=== PATIENT | female | born 2000 | race Caucasian/White ===

== ENCOUNTER 2021-05-20 08:17 | Inpatient (IN) | payer BC ==
[~2021-05-20] VITALS: Ht 167.6 cm; Wt 67.1 kg
[2021-05-20] MEDS ORDERED: ONDANSETRON 2MG/ML, 2ML IVPush ONE (08:30)
[2021-05-20] MEDS ORDERED: FAMOTIDINE 20 MG/2 ML IVPush ONE (08:30)
[2021-05-20] MEDS ORDERED: SODIUM CHLORIDE 0.9% 1,000ML IVBOLUS ONE (08:30)
[2021-05-20] MEDS ORDERED: SODIUM CHLORIDE FLUSH 10ML SYR IVF ONE (08:30)
--- NOTE | 2021-05-20 08:48 | NUR ---
FIRST CONTACT: VOMITING X2 WEEKS, ONLY RELIEVED BY HOT SHOWERS. SEEN LAST WEEK FOR SAME. HX:CYCLIC VOMITING. PT POSTIONED TO COMFORT AND ATTACHED TO MONITORS. VSS. OBANDO.
--- NOTE | 2021-05-20 08:48 | NUR ---
PT TO XRAY
[2021-05-20 08:54] LABS: BASOPHILS % (AUTO) 0 % (0-1); EOSINOPHILS % (AUTO) 1 % (1-7); LYMPHOCYTES % (AUTO) 17 % (22-44); MEAN CORPUSCULAR HEMOGLOBIN 29.7 pg (27.0-34.8); MEAN CORPUSCULAR HGB CONC 35.2 g/dL (32.4-35.8); MEAN PLATELET VOLUME 7.6 fL (7.4-10.4); MONOCYTES % (AUTO) 9 % (2-9); NEUTROPHILS % (AUTO) 73 % (42-75); PLATELET COUNT 418 x10^3/uL (130-400); RED BLOOD COUNT 5.31 x10^6/uL (3.82-5.3); RED CELL DISTRIBUTION WIDTH 12.5 % (9.6-15.2)
[2021-05-20] MEDS ORDERED: MAALOX/HYOSCYAMINE/LIDOCAINE 45 ML BTL ONE (09:00)
[2021-05-20] MEDS ORDERED: ONDANSETRON 2MG/ML, 2ML ONE (09:00)
[2021-05-20] MEDS: MAALOX/HYOSCYAMINE/LIDOCAINE 45 ML BTL PO ONE ×2 (09:03→10:16)
[2021-05-20 09:05] LABS: ANION GAP 9 mmol/L (5-15); CALCIUM 9.3 mg/dL (8.5-10.1); CHLORIDE 94 mmol/L (98-107)
[2021-05-20 09:06] LABS: ALANINE AMINOTRANSFERASE 32 U/L (12-78); ALBUMIN 4.3 g/dL (3.4-5.0)
[2021-05-20 09:11] LABS: ALKALINE PHOSPHATASE 121 U/L (45-117); BILIRUBIN,TOTAL 1.5 mg/dL (0.2-1.0); TOTAL PROTEIN 8.4 g/dL (6.4-8.2)
[2021-05-20] MEDS ORDERED: POTASSIUM CHLORIDE 20 MEQ TAB.ER.PRT PO ONE (09:30)
[2021-05-20] MEDS ORDERED: ZIPRASIDONE 20 MG INJ IM ONE ×2 (09:53→10:00)
[2021-05-20] MEDS ORDERED: POTASSIUM CHLORIDE 20 MEQ TAB.ER.PRT ONE (09:53)
--- NOTE | 2021-05-20 10:07 | NUR ---
pt medicated per emar. vss. nadn. up to bathroom with steady gait.
--- NOTE | 2021-05-20 12:07 | NUR ---
pt attemtped to leave ama r/t "ride being her" was stopped by Dr. Pandey r/t ekg changes. pt agreed to stay. new piv started. pt back to bed. vss. nadn. to be admitted.
--- NOTE | 2021-05-20 12:13 | NUR ---
YELLOW SLIP MEDICATION SENT TO PHARMACY WELL THIS RN CALLING TO REQUST MEDICATION. PT RESTING IN BED. TOPHER. VSS. ATTACHED TO STAFFING ASSOCIATE.
[2021-05-20] MEDS ORDERED: BACLOFEN 10 MG TABLET PO PRN (12:30)
[2021-05-20] MEDS ORDERED: ACETAMINOPHEN 325 MG TABLET PO PRN (12:30)
[2021-05-20] MEDS ORDERED: POTASSIUM CHLORIDE 20 MEQ in LACTATED RINGERS 1,000 ML IV ONE (12:30)
[2021-05-20] MEDS ORDERED: ONDANSETRON ODT 4 MG PO PRN (12:30)
[2021-05-20] MEDS ORDERED: BUTALB/APAP/CAFFEINE 50MG/325MG/40MG PO PRN (12:30)
[2021-05-20] MEDS ORDERED: GUAIFENESIN/DM 200-20MG, 10ML UDC PO PRN (12:30)
--- NOTE | 2021-05-20 12:40 | NUR ---
REPORT CALLED TO BELEM MAURICE.
[2021-05-20] MEDS: POTASSIUM CHLORIDE 40 MEQ in SODIUM CHLORIDE 0.9% 500 ML IV ONE ×2 (12:48→13:51)
[2021-05-20] MEDS: PROMETHAZINE 25 MG/ML, 1ML IM PRN ×2 (13:30→20:06)
[2021-05-20] MEDS: LACTULOSE 10 GM/15 ML UDC PO SCH (21:00)
[2021-05-20 21:18] VITALS: BP 168/108
[2021-05-20] MEDS: MELATONIN 5 MG TABLET PO PRN (21:35)
[2021-05-20] MEDS: hydrALAzine 20 MG/ML, 1ML IVPush PRN (21:52)
[2021-05-21 00:48] VITALS: BP 125/75
[2021-05-21 05:56] LABS: BASOPHILS % (AUTO) 1 % (0-1); EOSINOPHILS % (AUTO) 4 % (1-7); LYMPHOCYTES % (AUTO) 51 % (22-44); MEAN CORPUSCULAR HEMOGLOBIN 29.9 pg (27.0-34.8); MEAN CORPUSCULAR HGB CONC 34.6 g/dL (32.4-35.8); MEAN PLATELET VOLUME 7.7 fL (7.4-10.4); MONOCYTES % (AUTO) 10 % (2-9); NEUTROPHILS % (AUTO) 34 % (42-75); PLATELET COUNT 296 x10^3/uL (130-400); RED BLOOD COUNT 4.45 x10^6/uL (3.82-5.3)
[2021-05-21] MEDS: PROMETHAZINE 25 MG/ML, 1ML IM PRN ×2 (06:16→10:42)
[2021-05-21 06:28] LABS: ALBUMIN 3.2 g/dL (3.4-5.0); ANION GAP 2 mmol/L (5-15); CALCIUM 8.5 mg/dL (8.5-10.1); CHLORIDE 103 mmol/L (98-107)
[2021-05-21 06:32] LABS: ALANINE AMINOTRANSFERASE 22 U/L (12-78); ALKALINE PHOSPHATASE 83 U/L (45-117); BILIRUBIN,TOTAL 1.3 mg/dL (0.2-1.0); TOTAL PROTEIN 6.1 g/dL (6.4-8.2)
[2021-05-21 06:41] VITALS: BP 151/96
[2021-05-21] MEDS: ONDANSETRON 2MG/ML, 2ML IVPush PRN (08:20)
[2021-05-21] MEDS: LACTULOSE 10 GM/15 ML UDC PO SCH ×2 (08:24→21:00)
[2021-05-21 12:53] VITALS: BP 161/104
[2021-05-21] MEDS ORDERED: D5%-0.45NACL+KCL 20MEQ 1,000 ML IV ONE (18:00)
[2021-05-21 18:29] VITALS: BP 133/85
[2021-05-21] MEDS: MELATONIN 5 MG TABLET PO PRN (22:02)
[2021-05-22 01:35] VITALS: BP 118/75
[2021-05-22] MEDS ORDERED: DIPHENHYDRAMINE 25 MG CAPSULE PO PRN (03:00)
[2021-05-22 05:25] LABS: BASOPHILS % (AUTO) 1 % (0-1); EOSINOPHILS % (AUTO) 2 % (1-7); LYMPHOCYTES % (AUTO) 46 % (22-44); MEAN CORPUSCULAR HEMOGLOBIN 29.7 pg (27.0-34.8); MEAN CORPUSCULAR HGB CONC 34.8 g/dL (32.4-35.8); MEAN PLATELET VOLUME 7.8 fL (7.4-10.4); MONOCYTES % (AUTO) 9 % (2-9); NEUTROPHILS % (AUTO) 42 % (42-75); PLATELET COUNT 289 x10^3/uL (130-400); RED BLOOD COUNT 4.48 x10^6/uL (3.82-5.3); RED CELL DISTRIBUTION WIDTH 12.8 % (9.6-15.2)
[2021-05-22 05:41] LABS: CHLORIDE 102 mmol/L (98-107)
[2021-05-22 05:58] LABS: ALBUMIN 3.1 g/dL (3.4-5.0); ANION GAP 4 mmol/L (5-15); CALCIUM 8.6 mg/dL (8.5-10.1); CREATININE 0.79 mg/dL (0.55-1.02)
[2021-05-22 06:29] VITALS: BP 120/78
[2021-05-22] MEDS: LACTULOSE 10 GM/15 ML UDC PO SCH ×2 (09:00→20:45)
[2021-05-22] MEDS ORDERED: SINCALIDE (KINEVAC) 5 MCG ONE (09:24)
[2021-05-22 12:11] VITALS: BP 118/78
[2021-05-22] MEDS: ONDANSETRON 2MG/ML, 2ML IVPush PRN (13:29)
[2021-05-22] MEDS ORDERED: METOCLOPRAMIDE 5 MG/ML, 2ML IVPush PRN (15:30)
[2021-05-22] MEDS: D5%-0.45NACL+KCL 20MEQ 1,000 ML IV SCH (16:00)
[2021-05-22] MEDS: OMEPRAZOLE 10 MG CAPSULE.DR PO SCH (17:37)
[2021-05-22] MEDS: HALOPERIDOL 2 MG TABLET PO SCH ×2 (17:57→20:45)
[2021-05-22] MEDS: CAPSAICIN CRM 0.025%, 60GM TP SCH ×3 (18:07→21:45)
[2021-05-22 18:36] LABS: MICROSCOPIC NOT IND
[2021-05-22 19:54] VITALS: BP 162/113
[2021-05-22 20:39] VITALS: BP 158/123
[2021-05-22] MEDS: hydrALAzine 20 MG/ML, 1ML IVPush PRN (20:44)
[2021-05-22] MEDS: MELATONIN 5 MG TABLET PO PRN (20:45)
[2021-05-23 01:04] VITALS: BP 154/122
[2021-05-23] MEDS: hydrALAzine 20 MG/ML, 1ML IVPush PRN ×2 (01:07→20:45)
[2021-05-23] MEDS: D5%-0.45NACL+KCL 20MEQ 1,000 ML IV SCH ×2 (05:27→19:47)
[2021-05-23] MEDS: OMEPRAZOLE 10 MG CAPSULE.DR PO SCH ×2 (05:31→16:03)
[2021-05-23 07:16] VITALS: BP 118/75
[2021-05-23] MEDS: CAPSAICIN CRM 0.025%, 60GM TP SCH ×3 (08:50→21:00)
[2021-05-23] MEDS: LACTULOSE 10 GM/15 ML UDC PO SCH ×3 (08:50→20:50)
[2021-05-23] MEDS: HALOPERIDOL 5 MG/ML IV SCH ×3 (09:42→20:45)
[2021-05-23 14:45] VITALS: BP 132/78
[2021-05-23 19:56] VITALS: BP 157/105
[2021-05-23] MEDS: MELATONIN 5 MG TABLET PO PRN (20:45)
[2021-05-24 00:47] VITALS: BP 118/72
[2021-05-24] MEDS: OMEPRAZOLE 10 MG CAPSULE.DR PO SCH ×2 (06:03→16:57)
[2021-05-24] MEDS: LACTULOSE 10 GM/15 ML UDC PO SCH (09:00)
[2021-05-24 09:09] VITALS: BP 123/81
[2021-05-24] MEDS: HALOPERIDOL 5 MG/ML IV SCH ×2 (09:11→16:00)
[2021-05-24] MEDS: CAPSAICIN CRM 0.025%, 60GM TP SCH ×2 (09:11→15:59)
[2021-05-24 09:12] LABS: BASOPHILS % (AUTO) 1 % (0-1); EOSINOPHILS % (AUTO) 1 % (1-7); LYMPHOCYTES % (AUTO) 32 % (22-44); MEAN CORPUSCULAR HEMOGLOBIN 29.5 pg (27.0-34.8); MEAN CORPUSCULAR HGB CONC 34.2 g/dL (32.4-35.8); MEAN PLATELET VOLUME 7.8 fL (7.4-10.4); MONOCYTES % (AUTO) 10 % (2-9); NEUTROPHILS % (AUTO) 57 % (42-75); PLATELET COUNT 295 x10^3/uL (130-400); RED BLOOD COUNT 4.71 x10^6/uL (3.82-5.3); RED CELL DISTRIBUTION WIDTH 13.2 % (9.6-15.2)
[2021-05-24] MEDS: D5%-0.45NACL+KCL 20MEQ 1,000 ML IV SCH (09:16)
[2021-05-24 09:20] LABS: ALANINE AMINOTRANSFERASE 41 U/L (12-78); ALBUMIN 3.3 g/dL (3.4-5.0); ANION GAP 3 mmol/L (5-15); CALCIUM 8.8 mg/dL (8.5-10.1); CHLORIDE 107 mmol/L (98-107)
[2021-05-24 09:22] LABS: ALKALINE PHOSPHATASE 91 U/L (45-117); BILIRUBIN,TOTAL 1.2 mg/dL (0.2-1.0); TOTAL PROTEIN 6.6 g/dL (6.4-8.2)
[2021-05-24] MEDS: METOCLOPRAMIDE 10MG TABLET PO SCH ×2 (11:31→16:58)
[2021-05-24] MEDS ORDERED: LORazepam 2 MG/ML, 1ML IVPush PRN (12:00)
[2021-05-24 13:09] VITALS: BP 131/86
[2021-05-24] MEDS ORDERED: METO10TA2 PO (18:26)
[2021-05-24] MEDS ORDERED: OMEP10CA5 PO (18:26)
[2021-05-24] MEDS ORDERED: CAPS60CR23 TP (18:26)
[2021-05-24] MEDS ORDERED: HALO5TAB5 PO (18:26)
== END 2021-05-24 19:25 | disposition home or self-care (01) | DRG 391 ==
LOC: ED 08:34 → EDIP 12:07 → 4WST 12:53
PROVIDERS: ADMIT Family Medicine; ATTEND Family Medicine
DX: R11.10 Vomiting, unspecified (principal); N17.0 Acute kidney failure with tubular necrosis; E87.1 Hypo-osmolality and hyponatremia; R17 Unspecified jaundice; F12.90 Cannabis use, unspecified, uncomplicated; D72.829 Elevated white blood cell count, unspecified; E86.0 Dehydration; E87.6 Hypokalemia; F17.200 Nicotine dependence, unspecified, uncomplicated; F32.9 Major depressive disorder, single episode, unspecified; F90.9 Attention-deficit hyperactivity disorder, unspecified type; K82.8 Other specified diseases of gallbladder; R94.31 Abnormal electrocardiogram [ECG] [EKG]; Z79.899 Other long term (current) drug therapy; Z85.841 Personal history of malignant neoplasm of brain; Z79.891 Long term (current) use of opiate analgesic; Z79.01 Long term (current) use of anticoagulants
CPT/HCPCS: 36415; 70450; 74021; 74240; 76700; 78227; 80053; 80069; 81003; 83690; 83735; 84100; 84703; 85025; 93005; 96374; G0378; J2405; J2550; J3480; J3486; A9537; C9898; J0360; J1630; J2060; J2805; J7030; J7040; J7120; Q0163; Q0181